=== PATIENT | female | born 1940 | race Caucasian/White ===

== ENCOUNTER 2020-12-23 09:24 | Emergency (ER) | payer MEDICARE, BC ==
[~2020-12-23] VITALS: Ht 160 cm; Wt 85.0 kg
[~2020-12-23 09:24] MED LIST: IBUP-24 PO; L.AC1CAP6 PO; MULT-342 PO; NAPR220C15 PO
[2020-12-23 09:31] VITALS: BP 167/77
[2020-12-23] MEDS ORDERED: TETanus/Pertussis (Acell)/Diphther VAC/PF (Tdap-Adult) 0.5ml syringe IMVAC ONE (09:45)
[2020-12-23] MEDS ORDERED: LIDOcaine 1% W/epiNEPHrine 1:200,000 10ml vial IJ ONE (09:45)
[2020-12-23] MEDS ORDERED: bacitracin 15gm ointment TP ONE (09:45)
[2020-12-23] MEDS ORDERED: ketorolac tromethamine 15mg/ml inj. IM ONE (10:40)
[2020-12-23] MEDS ORDERED: CEPH250T PO (11:18)
== END 2020-12-23 11:24 | disposition home or self-care (01) ==
LOC: ER 09:24
DX: S01.511A Laceration without foreign body of lip, initial encounter (principal); Z98.890 Other specified postprocedural states; Z88.2 Allergy status to sulfonamides; Z79.2 Long term (current) use of antibiotics; Z79.899 Other long term (current) drug therapy; W19.XXXA Unspecified fall, initial encounter; Y93.89 Activity, other specified; Y92.89 Other specified places as the place of occurrence of the external cause; Y99.8 Other external cause status
CPT/HCPCS: 40650; 70450; 70486; 72125; 90471; 90715; 99285

== ENCOUNTER 2022-12-08 09:44 | Outpatient (CLI) | payer MEDICARE, BC ==
[2022-12-08 10:31] LABS: BASOPHILS # (AUTO) 0.1 X10'3 (0-0.2); BASOPHILS % (AUTO) 1.2 % (0-1); EOSINOPHILS # (AUTO) 0.6 X10'3 (0-0.9); HEMATOCRIT 40.5 % (35.0-45.0); HEMOGLOBIN 13.6 g/dl (12.0-16.0); LYMPHOCYTES # (AUTO) 2.6 X10'3 (1.1-4.8); LYMPHOCYTES % (AUTO) 23.3 % (21-51); MEAN CORPUSCULAR HEMOGLOBIN 30.2 PG (27.0-31.0); MEAN CORPUSCULAR HGB CONC 33.7 g/dL (33.0-36.5); MEAN CORPUSCULAR VOLUME 89.8 FL (78-98); MEAN PLATELET VOLUME 7.8 FL (7.4-10.4); MONOCYTES # (AUTO) 1.4 X10'3 (0-0.9); MONOCYTES % (AUTO) 12.6 % (2-12); NEUTROPHILS # (AUTO) 6.5 X10'3 (1.8-7.7); NEUTROPHILS % (AUTO) 57.9 % (42-75); PLATELET COUNT 398 X10'3 (140-440); RED BLOOD COUNT 4.51 X10'6 (4.20-5.60); WHITE BLOOD COUNT 11.3 X10'3 (4.5-11.0)
[2022-12-08 10:51] LABS: ALANINE AMINOTRANSFERASE 12 U/L (12-78); ALBUMIN 3.4 G/DL (3.4-5.0); ALBUMIN/GLOBULIN RATIO 0.7 (1.1-1.5); ALKALINE PHOSPHATASE 78 IU/L (46-116); ANION GAP 12 (8-16); ASPARTATE AMINO TRANSFERASE 16 U/L (10-37); BILIRUBIN,TOTAL 0.4 MG/DL (0.1-1.0); BLOOD UREA NITROGEN 18 MG/DL (7-18); BUN/CREATININE RATIO 18.4 (10.0-20.0); CALCIUM 9.2 MG/DL (8.5-10.1); CHLORIDE 96 MMOL/L (99-107); CREATININE 0.98 MG/DL (0.40-0.90); GLUCOSE 115 MG/DL (70-104); POTASSIUM 3.4 MMOL/L (3.5-5.1); SODIUM 133 MMOL/L (135-145); TOTAL CARBON DIOXIDE 25.5 MMOL/L (24-32); TOTAL PROTEIN 8.1 G/DL (6.4-8.2); eGFR 54 ML/MIN
[2022-12-10] MEDS ORDERED: LISI40TA13 PO (13:17)
[2022-12-10] MEDS ORDERED: ACET-2319 PO (13:17)
[2022-12-10] MEDS ORDERED: FURO-150 PO (13:17)
[2022-12-10] MEDS ORDERED: LOSA50TA64 PO (18:52)
== END 2022-12-08 23:59 | disposition home or self-care (01) ==
LOC: RAD 09:44
PROVIDERS: ATTEND Family Medicine
DX: R10.9 Unspecified abdominal pain (principal)
CPT/HCPCS: 36415; 76700; 80053; 85025; 85651

== ENCOUNTER 2022-12-09 10:45 | Outpatient (CLI) | payer MEDICARE, BC ==
[2022-12-10] MEDS ORDERED: ACET-2319 PO (13:17)
[2022-12-10] MEDS ORDERED: FURO-150 PO (13:17)
[2022-12-10] MEDS ORDERED: LISI40TA13 PO (13:17)
[2022-12-10] MEDS ORDERED: LOSA50TA64 PO (18:52)
== END 2022-12-09 23:59 | disposition home or self-care (01) ==
LOC: RAD 10:45
PROVIDERS: ATTEND Family Medicine
DX: K80.20 Calculus of gallbladder without cholecystitis without obstruction (principal); K57.30 Diverticulosis of large intestine without perforation or abscess without bleeding; R10.9 Unspecified abdominal pain
CPT/HCPCS: 74176

== ENCOUNTER 2022-12-11 09:56 | Inpatient (IN) | payer MEDICARE, BC ==
[2022-12-10 13:58] LABS: CLARITY,URINE SLIGHTLY CLOUDY (Clear); COLOR,URINE YELLOW (Yellow); GLUCOSE, URINE NEGATIVE (Neg); KETONES,URINE NEGATIVE (Neg); LEUKOCYTE ESTERASE ,URINE MODERATE (Neg); NITRITES, URINE NEGATIVE (Neg); OCCULT BLOOD,URINE NEGATIVE (Neg); PROTEIN,URINE 30 mg/dl (Neg); UROBILINOGEN,URINE 0.2 E.U/dL (0.2-1.0)
[2022-12-10 14:16] LABS: UA COLLECTION TYPE NON-SPECIFIED
[2022-12-10 14:17] LABS: RBC,URINE NONE SEEN /HPF (0-2)
[2022-12-10 14:18] LABS: BACTERIA,URINE 2+ /HPF (Neg); SQUAMOUS EPITHELIAL CELL,UR MANY /LPF (FEW); TRANSITIONAL EPI CELLS,URINE FEW /HPF; WBC CLUMPS,URINE FEW /HPF (NEGATIVE)
[2022-12-11] VITALS (20 sets, daily range): BP systolic 116–176; BP diastolic 47–94
[~2022-12-11] VITALS: Ht 160 cm; Wt 70.8 kg
[~2022-12-11 09:56] MED LIST changes: +ACET-2319 PO; +FURO-150 PO; -IBUP-24 PO; -L.AC1CAP6 PO; +LOSA50TA64 PO; -MULT-342 PO; -NAPR220C15 PO; +ceFOXitin 2GM-NS 100mL ADDvant 100 ML IV ONE; +famotidine 20mg tablet PO ONE
[2022-12-11] MEDS: ringers solution, lacted 1,000 ML IV SCH ×2 (12:17→19:30)
[2022-12-11] MEDS ORDERED: rocuronium 10mg/ml inj IV ONE (14:09)
[2022-12-11] MEDS ORDERED: propofol inj 20 ML IV ONE (14:09)
[2022-12-11] MEDS ORDERED: fentaNYL/PF 50MCG/1 ML 2ML syringe ONE (14:09)
[2022-12-11] MEDS ORDERED: ringers solution, lacted 1,000 ML IV SCH (14:10)
[2022-12-11] MEDS ORDERED: proCHLORperazine 10 MG/2 ml inj IV PRN (14:10)
[2022-12-11] MEDS ORDERED: meperidine/PF 25mg/ml syringe IV PRN ×2 (14:10)
[2022-12-11] MEDS ORDERED: ondansetron/PF 4mg/2ml inj IV PRN ×2 (14:10→14:50)
[2022-12-11] MEDS ORDERED: morphine 2 MG/ML inj. syringe IV PRN (14:10)
[2022-12-11] MEDS ORDERED: morphine 4 MG/ML inj SYRINge IV PRN (14:10)
[2022-12-11] MEDS ORDERED: BUPIVAcaine/PF 2.5 mg/ml (0.25%) 30ml vial IJ ONE (14:44)
[2022-12-11] MEDS ORDERED: dexamethasone sod phosphate 4mg/ml inj. ONE (14:49)
[2022-12-11] MEDS ORDERED: ondansetron/PF 4mg/2ml inj ONE (14:49)
[2022-12-11] MEDS ORDERED: HYDROmorphone/PF 0.2 MG/ML SYRINGE IV PRN (14:50)
[2022-12-11] MEDS ORDERED: magnesium Cl slow-release 64mg tablet PO PRN (14:50)
[2022-12-11] MEDS ORDERED: magnesium hydroxide 30ml (MOM) UD suspension PO PRN (14:50)
[2022-12-11] MEDS ORDERED: potassium Cl 40MEQ/1/2NS 520ml 520 ML IV PRN (14:50)
[2022-12-11] MEDS ORDERED: potassium Cl 20 mEq SR tablet PO PRN ×2 (14:50)
[2022-12-11] MEDS ORDERED: metoclopramide 5 mg/ml inj IV PRN (14:50)
[2022-12-11] MEDS ORDERED: ondansetron 4mg rapidly disintigrating tab PO PRN (14:50)
[2022-12-11] MEDS ORDERED: magnesium 2GM in 50ml NS 50 ML IV PRN (14:50)
[2022-12-11] MEDS ORDERED: magnesium 4gm in 100ml NS 100 ML IV PRN (14:50)
[2022-12-11] MEDS ORDERED: mag hydrox/Alum hydrox/simeth 30ml oral suspension PO PRN (14:50)
[2022-12-11] MEDS ORDERED: acetaminophen 325mg tablet PO PRN ×2 (14:50)
[2022-12-11] MEDS ORDERED: HYDROmorphone inj. 0.5 MG/0.5 ML DISP.SYRIN IV PRN (14:50)
[2022-12-11] MEDS ORDERED: bisacodyl 10mg suppository rectal RC PRN (14:50)
[2022-12-11] MEDS ORDERED: HYDROcodone/acetaminophen 5mg/325mg tablet PO PRN (14:50)
[2022-12-11] MEDS ORDERED: acetaminophen 1,000mg/100ml IV 100 ML IV ONE (14:52)
[2022-12-11] MEDS ORDERED: sugammadex 200mg/2ml injection IV ONE (14:58)
--- NOTE | 2022-12-11 15:15 | NUR ---
Received from OR via BED, accompanied by Anesthesiologist KACI and report given by Anesthesiolgist. PT SLEEPY, OXYGENATING WELL ON 10 LPM O2 VIA MASK, NO RESP DISTRESS NOTED. NO NAUSEA, C/O SEVERE PAIN, UNABLE TO USE PAIN SCALE. CRYING AND ASKING FOR HELP WITH PAIN. MEDICATED PRN, SEE EMR. 3 ABD LAP SITE, VINYL INSTALLER WITH DERMABOND. VSS. WILL CONTINUE TO MONITOR.
[2022-12-11] MEDS: meperidine/PF 25mg/ml syringe IV PRN ×2 (15:16→15:49)
--- NOTE | 2022-12-11 17:00 | NUR ---
PT STATES PAIN LEVEL IS 6/10. SAO2 89-93% ON 3L O2 VIA NC. PT WAS PROVIDED WITH AN IS AND EDUCATED ON ITS USE. PULMONARY TOILET ENCOURAGED. TOLERATING SIPS OF WATER, NO NAUSEA. TRANSFERRED TO 4012A IN STABLE CONDITION, REPORT GIVEN TO RECEIVING RN. BAG OF BELONGINGS PLACED ON BEDSIDE TABLE IN PT ROOM ON ORTHO.
--- NOTE | 2022-12-11 17:13 | NUR ---
PAGER ID: [phone] MESSAGE: Reba [phone] RE: Nilam Lothian room 4012A - patient has arrived on the floor
[2022-12-11] MEDS: piperacillin/tazo 3.375gm/50ml 50 ML IV SCH ×2 (17:28→23:17)
[2022-12-11] MEDS: normal saline 1000ml 1,000 ML IV SCH (17:35)
--- NOTE | 2022-12-11 17:43 | NUR ---
Notified Dr. Hernandez that the patient has arrived on the floor at 1715. Patient was brought on a bed accompanied by 2 PACU nursing staff. The antibiotic Zosyn which was scheduled for 1600 was not administered by PACU. Requested the medication from Pharmacy and administered. The patient states that she is in pain, rates the pain at 8. Postop vitals started. Vital signs are stable as noted on the postop vitals documentation.
--- NOTE | 2022-12-11 18:00 | NUR ---
Problems reprioritized. Patient report given, questions answered & plan of care reviewed with Reba JOE.
[2022-12-11] MEDS ORDERED: Chloraseptic (Phenol) Spray 177ml MM PRN (18:05)
[2022-12-11 18:27] LABS: BASOPHILS # (AUTO) 0.1 X10'3 (0-0.2); BASOPHILS % (AUTO) 0.9 % (0-1); EOSINOPHILS % (AUTO) 0.4 % (0-6); HEMATOCRIT 34.4 % (35.0-45.0); HEMOGLOBIN 11.7 g/dl (12.0-16.0); LYMPHOCYTES # (AUTO) 1.2 X10'3 (1.1-4.8); LYMPHOCYTES % (AUTO) 10.5 % (21-51); MEAN CORPUSCULAR HEMOGLOBIN 30.5 PG (27.0-31.0); MEAN CORPUSCULAR HGB CONC 34.1 g/dL (33.0-36.5); MEAN CORPUSCULAR VOLUME 89.5 FL (78-98); MEAN PLATELET VOLUME 7.4 FL (7.4-10.4); MONOCYTES # (AUTO) 0.2 X10'3 (0-0.9); MONOCYTES % (AUTO) 1.9 % (2-12); NEUTROPHILS # (AUTO) 9.5 X10'3 (1.8-7.7); NEUTROPHILS % (AUTO) 86.3 % (42-75); PLATELET COUNT 336 X10'3 (140-440); RED BLOOD COUNT 3.85 X10'6 (4.20-5.60); RED CELL DISTRIBUTION WIDTH 13.7 % (11.5-14.5)
--- NOTE | 2022-12-11 18:38 | NUR ---
Problems reprioritized. Patient report given, questions answered & plan of care reviewed with HEATH De.
[2022-12-11 18:49] LABS: APTT 29 SECONDS (22-32)
[2022-12-11 18:54] LABS: ALANINE AMINOTRANSFERASE 32 U/L (12-78); ALBUMIN 2.9 G/DL (3.4-5.0); ALBUMIN/GLOBULIN RATIO 0.7 (1.1-1.5); ALKALINE PHOSPHATASE 67 IU/L (46-116); ANION GAP 9 (8-16); ASPARTATE AMINO TRANSFERASE 38 U/L (10-37); BILIRUBIN,TOTAL 0.3 MG/DL (0.1-1.0); BLOOD UREA NITROGEN 13 MG/DL (7-18); CALCIUM 8.6 MG/DL (8.5-10.1); CHLORIDE 100 MMOL/L (99-107); CREATININE 0.93 MG/DL (0.40-0.90); GLUCOSE 157 MG/DL (70-104); PHOSPHORUS 3.2 MG/DL (2.3-4.5); POTASSIUM 3.7 MMOL/L (3.5-5.1); SODIUM 132 MMOL/L (135-145); TOTAL CARBON DIOXIDE 22.6 MMOL/L (24-32); eGFR 58 ML/MIN
[2022-12-11] MEDS: K and/or MAG REPLACEMENT MC SCH (19:35)
[2022-12-11] MEDS: docusate sod 100mg capsule PO SCH (20:43)
[2022-12-11] MEDS ORDERED: DP HYDRAM HCL PO SCH (21:00)
[2022-12-11] MEDS ORDERED: temazepam 15mg capsule PO PRN (21:00)
[2022-12-11] MEDS ORDERED: ACETAMINOPHEN PO SCH (21:00)
[2022-12-11] MEDS: Chloraseptic (Phenol) Spray 177ml MM PRN (23:17)
[2022-12-12] MEDS: normal saline 1000ml 1,000 ML IV SCH ×3 (00:50→22:17)
[2022-12-12] MEDS: HYDROcodone/acetaminophen 10/325mg tab PO PRN ×2 (05:26→21:16)
--- NOTE | 2022-12-12 05:41 | NUR ---
Problems reprioritized. Patient report given, questions answered & plan of care reviewed with Reba JOE.
[2022-12-12 06:00] VITALS: BP 174/66
[2022-12-12 06:47] LABS: BASOPHILS % (AUTO) 0.4 % (0-1); EOSINOPHILS % (AUTO) 0.1 % (0-6); HEMATOCRIT 30.8 % (35.0-45.0); HEMOGLOBIN 10.6 g/dl (12.0-16.0); LYMPHOCYTES # (AUTO) 1.7 X10'3 (1.1-4.8); LYMPHOCYTES % (AUTO) 15.8 % (21-51); MEAN CORPUSCULAR HEMOGLOBIN 30.7 PG (27.0-31.0); MEAN CORPUSCULAR HGB CONC 34.4 g/dL (33.0-36.5); MEAN CORPUSCULAR VOLUME 89.3 FL (78-98); MEAN PLATELET VOLUME 7.9 FL (7.4-10.4); MONOCYTES # (AUTO) 0.5 X10'3 (0-0.9); MONOCYTES % (AUTO) 4.6 % (2-12); NEUTROPHILS # (AUTO) 8.6 X10'3 (1.8-7.7); NEUTROPHILS % (AUTO) 79.1 % (42-75); PLATELET COUNT 328 X10'3 (140-440); RED BLOOD COUNT 3.45 X10'6 (4.20-5.60); RED CELL DISTRIBUTION WIDTH 13.8 % (11.5-14.5); WHITE BLOOD COUNT 10.9 X10'3 (4.5-11.0)
[2022-12-12 07:16] LABS: ALANINE AMINOTRANSFERASE 43 U/L (12-78); ALBUMIN 2.7 G/DL (3.4-5.0); ALBUMIN/GLOBULIN RATIO 0.7 (1.1-1.5); ALKALINE PHOSPHATASE 63 IU/L (46-116); ANION GAP 10 (8-16); ASPARTATE AMINO TRANSFERASE 57 U/L (10-37); BILIRUBIN,TOTAL 0.3 MG/DL (0.1-1.0); BLOOD UREA NITROGEN 12 MG/DL (7-18); BUN/CREATININE RATIO 14.3 (10.0-20.0); CALCIUM 8.5 MG/DL (8.5-10.1); CHLORIDE 99 MMOL/L (99-107); CREATININE 0.84 MG/DL (0.40-0.90); GLUCOSE 156 MG/DL (70-104); SODIUM 132 MMOL/L (135-145); TOTAL CARBON DIOXIDE 22.7 MMOL/L (24-32); TOTAL PROTEIN 6.7 G/DL (6.4-8.2); eGFR 65 ML/MIN
[2022-12-12] MEDS ORDERED: losartan 50mg tablet PO SCH (08:00)
[2022-12-12] MEDS: K and/or MAG REPLACEMENT MC SCH ×2 (08:00→19:56)
[2022-12-12] MEDS: docusate sod 100mg capsule PO SCH ×2 (08:30→20:09)
[2022-12-12] MEDS: Chloraseptic (Phenol) Spray 177ml MM PRN ×2 (08:31→12:44)
[2022-12-12] MEDS: piperacillin/tazo 3.375gm/50ml 50 ML IV SCH ×2 (08:31→15:48)
[2022-12-12 10:00] VITALS: BP 170/59
--- NOTE | 2022-12-12 13:59 | NUR ---
Malnutrition consult: Pt reports 2-13 lb wt loss with decreased appetite/PO intake per malnutrition risk screen with RN. Pt seen at bedside states UBW ~165 lbs however lost 5 lbs in three months after getting her COVID booster shot a couple years ago. Pt then states she was weighing around 162-164 lbs and recently lost about five pounds in two weeks d/t pain with PO intake secondary to cholelithiasis. Current scaled wt is 157 lbs. This is non-severe wt loss of 3% in two weeks. Pt currently on a full liquid diet POD #1 s/p laparoscopic cholecystectomy and documented with 100% PO intake of first meal which was clear liquids. Pt states UPPER [employer]IMMER she would try to eat light to assist with pain management. Pt with no documented edema and no visible fat or muscle wasting appreciated. Pt currently lacks a minimum of two criteria for malnutrition. Pt denies food allergies or difficulty chewing/swallowing. Will continue to follow. Addendum: 12/12/22 at [address] Amended: Links added.
[2022-12-12 18:00] VITALS: BP 149/74
--- NOTE | 2022-12-12 18:39 | NUR ---
Problems reprioritized. Patient report given, questions answered & plan of care reviewed with HEATH Cordero.
[2022-12-12 22:00] VITALS: BP 155/60
[2022-12-13] MEDS: piperacillin/tazo 3.375gm/50ml 50 ML IV SCH (00:07)
[2022-12-13 06:00] VITALS: BP 101/62
[2022-12-13] MEDS: HYDROcodone/acetaminophen 10/325mg tab PO PRN ×2 (06:04→19:55)
--- NOTE | 2022-12-13 06:11 | NUR ---
Problems reprioritized. Patient report given, questions answered & plan of care reviewed with HEATH Moscoso.
[2022-12-13 06:37] LABS: BASOPHILS # (AUTO) 0.1 X10'3 (0-0.2); BASOPHILS % (AUTO) 0.8 % (0-1); EOSINOPHILS # (AUTO) 0.7 X10'3 (0-0.9); EOSINOPHILS % (AUTO) 4.5 % (0-6); HEMATOCRIT 28.5 % (35.0-45.0); HEMOGLOBIN 9.6 g/dl (12.0-16.0); LYMPHOCYTES % (AUTO) 19.3 % (21-51); MEAN CORPUSCULAR HEMOGLOBIN 30.2 PG (27.0-31.0); MEAN CORPUSCULAR HGB CONC 33.8 g/dL (33.0-36.5); MEAN CORPUSCULAR VOLUME 89.5 FL (78-98); MEAN PLATELET VOLUME 7.9 FL (7.4-10.4); MONOCYTES # (AUTO) 1.4 X10'3 (0-0.9); MONOCYTES % (AUTO) 9.4 % (2-12); NEUTROPHILS # (AUTO) 10.2 X10'3 (1.8-7.7); PLATELET COUNT 331 X10'3 (140-440); RED BLOOD COUNT 3.18 X10'6 (4.20-5.60); RED CELL DISTRIBUTION WIDTH 13.8 % (11.5-14.5); WHITE BLOOD COUNT 15.4 X10'3 (4.5-11.0)
[2022-12-13 06:42] LABS: ALANINE AMINOTRANSFERASE 45 U/L (12-78); ALBUMIN 2.5 G/DL (3.4-5.0); ALBUMIN/GLOBULIN RATIO 0.7 (1.1-1.5); ALKALINE PHOSPHATASE 54 IU/L (46-116); ANION GAP 5 (8-16); ASPARTATE AMINO TRANSFERASE 44 U/L (10-37); BILIRUBIN,TOTAL 0.3 MG/DL (0.1-1.0); BLOOD UREA NITROGEN 11 MG/DL (7-18); BUN/CREATININE RATIO 12.8 (10.0-20.0); CALCIUM 8.4 MG/DL (8.5-10.1); CHLORIDE 104 MMOL/L (99-107); CREATININE 0.86 MG/DL (0.40-0.90); GLUCOSE 107 MG/DL (70-104); POTASSIUM 3.6 MMOL/L (3.5-5.1); SODIUM 135 MMOL/L (135-145); TOTAL CARBON DIOXIDE 25.6 MMOL/L (24-32); eGFR 63 ML/MIN
[2022-12-13] MEDS: docusate sod 100mg capsule PO SCH ×2 (08:00→19:48)
[2022-12-13] MEDS ORDERED: losartan 50mg tablet PO ONE (09:00)
[2022-12-13] MEDS: K and/or MAG REPLACEMENT MC SCH ×2 (09:52→19:01)
[2022-12-13] MEDS: normal saline 1000ml 1,000 ML IV SCH (09:55)
[2022-12-13 10:00] VITALS: BP 123/41
--- NOTE | 2022-12-13 13:07 | NUR ---
Right hand very swollen, IV infiltrated & dc. Patient refusing to cut ring. Elevated on pillows.
--- NOTE | 2022-12-13 17:00 | NUR ---
Patient request pain med per BRAXTON Warren.
--- NOTE | 2022-12-13 17:25 | NUR ---
Entered room to give pt norco for pain. Patient refused pain pill and stated "never mind, you havent bothered to give me a pain pill since last night." Reminded pt she had a norco at 6am and denied pain to me since that time. I asked again and again she refused. 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
[2022-12-13 18:00] VITALS: BP 140/53
--- NOTE | 2022-12-13 18:10 | NUR ---
Again asked patient if she would like a pain pill. No response, refused to look in my direction. At my request noc HEATH Beatty also came in the room and attempted to converse with the patient. At that time she declined pain pill again. Returned me to [employer].
[2022-12-13 23:00] VITALS: BP 127/43
[2022-12-14 06:00] VITALS: BP 162/63
--- NOTE | 2022-12-14 06:05 | NUR ---
received report from derrell muñiz rn
--- NOTE | 2022-12-14 06:12 | NUR ---
Problems reprioritized. Patient report given, questions answered & plan of care reviewed with HEATH Dinero.
[2022-12-14 06:13] LABS: BASOPHILS # (AUTO) 0.2 X10'3 (0-0.2); BASOPHILS % (AUTO) 1.8 % (0-1); EOSINOPHILS # (AUTO) 1.1 X10'3 (0-0.9); EOSINOPHILS % (AUTO) 10.1 % (0-6); HEMATOCRIT 29.6 % (35.0-45.0); LYMPHOCYTES # (AUTO) 2.9 X10'3 (1.1-4.8); LYMPHOCYTES % (AUTO) 27.5 % (21-51); MEAN CORPUSCULAR HEMOGLOBIN 30.1 PG (27.0-31.0); MEAN CORPUSCULAR HGB CONC 33.6 g/dL (33.0-36.5); MEAN CORPUSCULAR VOLUME 89.4 FL (78-98); MONOCYTES # (AUTO) 1.1 X10'3 (0-0.9); MONOCYTES % (AUTO) 10.5 % (2-12); NEUTROPHILS # (AUTO) 5.3 X10'3 (1.8-7.7); NEUTROPHILS % (AUTO) 50.1 % (42-75); PLATELET COUNT 346 X10'3 (140-440); RED BLOOD COUNT 3.31 X10'6 (4.20-5.60); RED CELL DISTRIBUTION WIDTH 13.8 % (11.5-14.5); WHITE BLOOD COUNT 10.5 X10'3 (4.5-11.0)
[2022-12-14 06:25] LABS: ALANINE AMINOTRANSFERASE 47 U/L (12-78); ALBUMIN 2.7 G/DL (3.4-5.0); ALBUMIN/GLOBULIN RATIO 0.7 (1.1-1.5); ALKALINE PHOSPHATASE 71 IU/L (46-116); ANION GAP 10 (8-16); ASPARTATE AMINO TRANSFERASE 43 U/L (10-37); BILIRUBIN,TOTAL 0.4 MG/DL (0.1-1.0); BLOOD UREA NITROGEN 8 MG/DL (7-18); BUN/CREATININE RATIO 11.6 (10.0-20.0); CALCIUM 8.5 MG/DL (8.5-10.1); CHLORIDE 104 MMOL/L (99-107); CREATININE 0.69 MG/DL (0.40-0.90); GLUCOSE 84 MG/DL (70-104); MAGNESIUM 1.9 MG/DL (1.5-2.4); POTASSIUM 3.5 MMOL/L (3.5-5.1); SODIUM 137 MMOL/L (135-145); TOTAL CARBON DIOXIDE 23.5 MMOL/L (24-32); TOTAL PROTEIN 6.5 G/DL (6.4-8.2); eGFR 81 ML/MIN
[2022-12-14] MEDS ORDERED: losartan 50mg tablet PO SCH (08:00)
[2022-12-14] MEDS: K and/or MAG REPLACEMENT MC SCH (08:00)
[2022-12-14] MEDS: docusate sod 100mg capsule PO SCH (08:16)
[2022-12-14] MEDS: HYDROcodone/acetaminophen 10/325mg tab PO PRN (08:20)
[2022-12-14 11:00] VITALS: BP 136/67
--- NOTE | 2022-12-14 12:27 | NUR ---
GAVE REPORT TO HEATH BARRAGAN AT [facility]
--- NOTE | 2022-12-14 12:59 | NUR ---
pt d/c with all belongings, in wheelchair accompanied by [facility] personnel to go [facility]
== END 2022-12-14 12:50 | DRG 417 ==
LOC: PAS 09:56 → ORTHO 4S 14:46
PROVIDERS: ADMIT Family Medicine; ATTEND Surgery
PROC: 0FT44ZZ Resection of Gallbladder, Percutaneous Endoscopic Approach (ICD-10-PCS; principal; 2022-12-11 14:08)
DX: K80.12 Calculus of gallbladder with acute and chronic cholecystitis without obstruction (principal); N17.0 Acute kidney failure with tubular necrosis; E87.1 Hypo-osmolality and hyponatremia; I10 Essential (primary) hypertension; J02.9 Acute pharyngitis, unspecified; E88.09 Other disorders of plasma-protein metabolism, not elsewhere classified; R74.01 Elevation of levels of liver transaminase levels; E78.5 Hyperlipidemia, unspecified; E03.9 Hypothyroidism, unspecified; R53.81 Other malaise; Z80.3 Family history of malignant neoplasm of breast; Z82.49 Family history of ischemic heart disease and other diseases of the circulatory system; Z83.3 Family history of diabetes mellitus; Z87.891 Personal history of nicotine dependence; Z88.2 Allergy status to sulfonamides; Z90.710 Acquired absence of both cervix and uterus; Z79.899 Other long term (current) drug therapy
CPT/HCPCS: 36415; 71045; 74176; 76700; 80053; 81001; 82948; 83735; 84100; 85025; 85610; 85651; 85730; 93005; 97116; 97161; 97530; A4215; A4615; A4618; A6258; A7000; G0378; J0131; J0694; J1100; J2175; J2405; J2543; J2704; J3010; J3490; J7030; J7120